=== PATIENT | female | born 1950 | race Caucasian/White ===

== ENCOUNTER 2017-10-22 16:09 | Emergency (ER) | payer OTHER | END 2017-10-22 16:54 | disposition short-term general hospital (02) | LOC: ER 16:09 | DX: R69 Illness, unspecified (principal) ==

== ENCOUNTER 2018-02-16 18:21 | Emergency (ER) | payer MEDICARE, OTHER ==
[2018-02-16] MEDS ORDERED: AZITHROMYCIN 500MG/NS 250 ML 250 ML IV ONE (18:30)
[2018-02-16] MEDS ORDERED: ASPIRIN 81 MG CHEW TAB PO ONE (18:30)
[2018-02-16] MEDS ORDERED: IPRATROPIUM BROMIDE 0.02% 2.5 ML NEB NEB STA (18:30)
[2018-02-16] MEDS ORDERED: ALBUTEROL SULF 0.083% NEB SOLN 3 ML NEB NEB STA (18:30)
[2018-02-16] MEDS ORDERED: CEFTRIAXONE SOD 1 GM VIAL IV ONE (19:00)
[2018-02-16 19:13] LABS: BASOPHILS % 0.5 % (0.0-1.0); EOSINOPHILS # (AUTO) 0.3 (0.0-0.4); EOSINOPHILS % 3.1 % (0.0-6.0); HEMATOCRIT 40.5 % (34.2-44.1); HEMOGLOBIN 14.1 g/dL (12.0-16.0); LYMPHOCYTES # (AUTO) 2.1 (1.0-3.2); LYMPHOCYTES % 25.6 % (18.0-39.1); MEAN CORPUSCULAR HEMOGLOBIN 30.5 pg (28-32); MEAN CORPUSCULAR HGB CONC 34.8 g/dL (31-35); MEAN CORPUSCULAR VOLUME 87.5 fL (81-99); MONOCYTES # (AUTO) 0.8 (0.2-0.8); NEUTROPHILS # (AUTO) 5.1 (2.1-6.9); NEUTROPHILS % 61.4 % (38.7-80.0); PLATELET COUNT 203 x10e3/uL (140-360); RED BLOOD COUNT 4.63 x10e6/uL (3.6-5.1); RED CELL DISTRIBUTION WIDTH 13.7 % (11.7-14.4)
[2018-02-16 19:25] LABS: PROTHROMBIN TIME 12.4 seconds (11.9-14.5)
[2018-02-16 19:26] LABS: PARTIAL THROMBOPLASTIN TIME 28.8 seconds (23.8-35.5)
[2018-02-16 19:35] LABS: ALANINE AMINOTRANSFERASE 20 IU/L (0-55); ALBUMIN 4.2 g/dL (3.5-5.0); ALBUMIN/GLOBULIN RATIO 1.1 (0.8-2.0); ALKALINE PHOSPHATASE 60 IU/L (40-150); ANION GAP 14.5 mmol/L (8-16); BLOOD UREA NITROGEN 17 mg/dL (7-26); BUN/CREATININE RATIO 19 (6-25); CALCIUM 10.1 mg/dL (8.4-10.2); CARBON DIOXIDE 26 mmol/L (22-29); CHLORIDE 105 mmol/L (98-107); CREATINE KINASE 26 IU/L (29-168); CREATININE, SERUM 0.88 mg/dL (0.57-1.11); EST GLOMERULAR FILTRATION RATE > 60 ML/MIN (60-); GLUCOSE 135 mg/dL (74-118); MAGNESIUM 1.8 MG/DL (1.3-2.1); POTASSIUM 3.5 mmol/L (3.5-5.1); SODIUM 142 mmol/L (136-145)
[2018-02-16 19:36] LABS: CLARITY,URINE CLEAR (CLEAR); COLOR,URINE YELLOW (YELLOW)
[2018-02-16 19:37] LABS: BACTERIA,URINE RARE /HPF; BILIRUBIN,URINE NEGATIVE (NEGATIVE); EPITHELIAL CELLS,URINE RARE /LPF; KETONES,URINE NEGATIVE (NEGATIVE); LEUKOCYTE ESTERASE ,URINE 1+ (NEGATIVE); NITRITE,URINE NEGATIVE (NEGATIVE); PROTEIN,URINE DIPSTICK NEGATIVE (NEGATIVE); RBC,URINE 0-5 /HPF (0-5); URINE UROBILINOGEN 0.2 mg/dL (0.2 - 1)
[2018-02-16 19:55] LABS: THYROID STIMULATING HORMONE 2.404 uIU/mL (0.350-4.940)
--- NOTE | 2018-02-16 21:04 | Diagnostic Imaging Report ---
CHEST 2 VIEWS, Technique: CHEST 2 VIEWS Comparison: None Clinical history: Shortness of breath, cough DISCUSSION: Normal cardiomediastinal silhouette for technique. Mild central bilateral bronchial cuffing. No consolidation partially imaged ACDF. IMPRESSION: Findings which can be seen with small airways disease or atypical infection/bronchitis. Signed by: Dr Nayla Jennings MD on 02/16/2018 9:00 PM
--- NOTE | 2018-02-16 21:11 | Diagnostic Imaging Report ---
EXAM: CT CHEST W DATE: 02/16/2018 6:30 PM INDICATION: Shortness of breath, cough COMPARISON: None TECHNIQUE: Multidetector CT scanning of the chest was performed. Coronal and sagittal multiplanar reformations were obtained. IV Contrast: 100 ml Isovue 370/300 FINDINGS: LUNGS AND PLEURA: There is bilateral peribronchial thickening and mild groundglass opacity primarily in the right upper lobe, likely postinfectious or inflammatory. No effusions or pneumothorax. HEART, MEDIASTINUM, VESSELS: Normal heart size without pericardial effusion. There is coronary artery and aortic atherosclerotic calcification. No adenopathy. Degraded by motion artifact in the lower lobes, from early on the left; otherwise no evidence of acute pulmonary embolism. Main pulmonary artery is normal in caliber, 2.4 cm. UPPER ABDOMEN: Unremarkable. MUSCULOSKELETAL: Scattered degenerative changes and partially imaged ACDF. IMPRESSION: 1. Somewhat degraded by motion artifact in the lower lobes. Otherwise no evidence of acute pulmonary embolism. 2. Findings which can be seen with small airways disease or bronchitis. Signed by: Dr Nayla Jennings MD on 02/16/2018 9:07 PM
[2018-02-16] MEDS ORDERED: IOPAMIDOL 370 MG/ML 200 ML INFUS..BTL INJ ONE (21:22)
[2018-02-16] MEDS ORDERED: SODIUM CHLORIDE 0.9% 50ML 50 ML ONE (21:22)
[2018-02-16] MEDS ORDERED: METHYLPREDNISOLONE SOD SUCC 125 MG/2ML VIAL IV ONE (21:30)
== END 2018-02-16 21:58 | disposition home or self-care (01) ==
LOC: ER 18:21
DX: R05 Cough (principal); J20.9 Acute bronchitis, unspecified
CPT/HCPCS: 36415; 71046; 71260; 80053; 81001; 82550; 82553; 83735; 83880; 84443; 84484; 85025; 85610; 85730; 87086; 93005; 94640; 96374; 99284; J0456; J0696; J2930; Q9967

== ENCOUNTER 2018-05-02 12:36 | Observation (INO) | payer MEDICARE ==
[~2018-05-02] VITALS: Ht 167.6 cm; Wt 92.6 kg
[2018-05-02] MEDS ORDERED: LEVOTHYROXINE50 MCG PO (13:41)
[2018-05-02] MEDS ORDERED: LOSARTAN POTASS25 MG PO (13:42)
[2018-05-02] MEDS ORDERED: MELOXICAM7.5 MG PO (13:43)
[2018-05-02] MEDS ORDERED: CLONAZEPAM0.5 MG PO (13:44)
[2018-05-02] MEDS ORDERED: ASPIR 8181 MG PO (13:44)
[2018-05-02] MEDS ORDERED: GABAPENTIN300 MG PO (13:44)
[2018-05-02 13:47] LABS: BASOPHILS % 0.4 % (0.0-1.0); EOSINOPHILS # (AUTO) 0.1 (0.0-0.4); EOSINOPHILS % 1.2 % (0.0-6.0); HEMATOCRIT 38.1 % (34.2-44.1); HEMOGLOBIN 13.2 g/dL (12.0-16.0); LYMPHOCYTES # (AUTO) 1.6 (1.0-3.2); LYMPHOCYTES % 18.2 % (18.0-39.1); MEAN CORPUSCULAR HEMOGLOBIN 30.2 pg (28-32); MEAN CORPUSCULAR HGB CONC 34.6 g/dL (31-35); MEAN CORPUSCULAR VOLUME 87.2 fL (81-99); MONOCYTES # (AUTO) 0.7 (0.2-0.8); MONOCYTES % 7.6 % (4.4-11.3); NEUTROPHILS # (AUTO) 6.4 (2.1-6.9); NEUTROPHILS % 72.4 % (38.7-80.0); PLATELET COUNT 208 x10e3/uL (140-360); RED BLOOD COUNT 4.37 x10e6/uL (3.6-5.1); RED CELL DISTRIBUTION WIDTH 13.4 % (11.7-14.4)
[2018-05-02 14:09] LABS: ANION GAP 16.1 mmol/L (8-16); BLOOD UREA NITROGEN 20 mg/dL (7-26); BUN/CREATININE RATIO 27 (6-25); CALCIUM 9.8 mg/dL (8.4-10.2); CARBON DIOXIDE 24 mmol/L (22-29); CHLORIDE 104 mmol/L (98-107); CREATININE, SERUM 0.74 mg/dL (0.57-1.11); EST GLOMERULAR FILTRATION RATE > 60 ML/MIN (60-); GLUCOSE 116 mg/dL (74-118); POTASSIUM 4.1 mmol/L (3.5-5.1); SODIUM 140 mmol/L (136-145)
[2018-05-02] MEDS ORDERED: PROPOFOL IV EMULSION 10 MG/ML 20 ML VIAL ONE (16:48)
[2018-05-02] MEDS ORDERED: DEXAMETHASONE SOD PHOS INJ 4 MG/ML VIAL ONE (16:48)
[2018-05-02] MEDS ORDERED: KETOROLAC TROMETHAMINE 30 MG/ML VIAL ONE (16:48)
[2018-05-02] MEDS ORDERED: LIDOCAINE HCL 2% LOCAL INJ 5 ML SDV VIAL INJ ONE (16:48)
[2018-05-02] MEDS ORDERED: ONDANSETRON HCL INJ 2 MG/ML VIAL ONE (16:48)
[2018-05-02] MEDS ORDERED: ROCURONIUM BROMIDE 10 MG/ML 5ML VIAL ONE (16:48)
[2018-05-02] MEDS ORDERED: GLYCOPYRROLATE INJ 1MG/ 5 ML SYR ONE (16:48)
[2018-05-02] MEDS ORDERED: NEOSTIGMINE 5 MG/5ML SYR ONE (16:48)
[2018-05-02] MEDS ORDERED: SEVOFLURANE INHAL SOLN 250 ML PEN BTL ONE (16:48)
[2018-05-02] MEDS ORDERED: BUPIVACAINE 0.25%/EPI 30ML SDV INJ ONE (17:01)
[2018-05-02] MEDS ORDERED: FENTANYL CITRATE/PF 100MCG/2 ML INJ ONE ×2 (18:03→19:41)
[2018-05-02] MEDS ORDERED: MIDAZOLAM HCL 2 MG/2 ML VIAL ONE (18:03)
[2018-05-02] MEDS ORDERED: PROMETHAZINE HCL (IM) 25 MG/ML VIAL IV PRN (19:00)
[2018-05-02] MEDS ORDERED: ACETAMINOPHEN 1000 MG/100 ML IV PRN (19:00)
[2018-05-02] MEDS ORDERED: HYDROMORPHONE 1MG/1ML INJ IV PRN (19:00)
[2018-05-02] MEDS ORDERED: PROMETHAZINE 12.5MG/ NACL 0.9% 50 ML IV PRN (19:30)
[2018-05-02 20:05] VITALS: BP 142/65
[2018-05-02] MEDS: DEXTROSE 5%/LACTATED RINGERS 1,000 ML IV SCH (20:10)
[2018-05-02 20:12] VITALS: BP 129/59
[2018-05-02 20:39] VITALS: BP 129/59
[2018-05-02] MEDS ORDERED: PANTOPRAZOLE 40 MG 10ML VIAL IV SCH (21:00)
[2018-05-02] MEDS ORDERED: MAGNESIUM/ALUMINUM/SIMETHICONE 30 ML UDC PO SCH (21:00)
[2018-05-02 21:04] VITALS: BP 129/59
--- NOTE | 2018-05-02 21:07 | Operative Report ---
DATE OF PROCEDURE: May 02, 2018 PREOPERATIVE DIAGNOSES 1. Cholecystitis and cholelithiasis. 2. Gastroesophageal reflux disease, rule out peptic ulcer. POSTOPERATIVE DIAGNOSES 1. Cholecystitis and cholelithiasis. 2. Large duodenal ulcer. OPERATION PERFORMED: Laparoscopic cholecystectomy and esophagogastroduodenoscopy. ANESTHESIA: General. COMPLICATIONS: None. ESTIMATED BLOOD LOSS: Minimal. DESCRIPTION OF PROCEDURE: With the patient lying in bed in the supine position under good general endotracheal anesthesia, the abdomen was prepped with Betadine solution and draped in the usual manner. A Veress needle was introduced into the umbilicus and pneumoperitoneum was established without any difficulty. An11 mm trocar was placed into the umbilicus and a 10 mm video laparoscope was placed into the intraabdominal cavity. Under direct vision, three 5 mm trocars were placed in the right subcostal region. Video laparoscopy at this point revealed that the right upper quadrant was socked in with adhesions. The gallbladder was totally covered up with adhesions. The duodenum was stuck to the gallbladder as well as transverse colon seemed to be stuck to the duodenum. This was a much more severe inflammatory reaction than what we typically see with a normal gallbladder disease. The rest the abdominal exploration was otherwise within normal limits. All of the adhesions to the gallbladder and the duodenum and colon were then from the gallbladder. All of the adhesions to the gallbladder were taken down and the peritoneum overlying neck of the gallbladder was then opened and the cystic duct was identified. The cystic duct was followed to its junction with the common duct. The cystic duct was then circumferentially dissected away from the common duct, doubly clipped and divided. The cystic artery was similarly doubly clipped and divided. The gallbladder was then slowly and carefully taken off the liver bed using the cautery scissors. Perfect hemostasis was ascertained. The gallbladder was grasped through the umbilical port and removed without any difficulty. Video laparoscopy was then again carried out. Liver bed was found to be perfectly dry. All of the excess fluid was aspirated. The pneumoperitoneum was evacuated and all the trocars were removed under direct vision. The midline fascia at the umbilicus was then closed with a inzxli-pc-ptosm of 0 Vicryl. All layers were infiltrated on the way out with solution of 1/4 percent Marcaine. Subcutaneous tissue was approximated with 3-0 Vicryl and the skin was closed with subcuticular 5-0 Vicryl. Benzoin and Steri-Strips were applied. Band-Aids were placed. After this was done, the flexible Olympus gastroscope was then introduced into the back of the throat and slowly and carefully advanced. The esophagus appeared to be within normal limits. There was some minimal gastroesophageal reflux disease identified at the cardia. The cardia was then entered and the stomach was insufflated. The stomach appeared to be within normal limits with very minimal gastritis; however, right at the duodenum ball was a very large ulcer present with a large deep crater. There was no sign of any active bleeding. The ulceration was anterior and perhaps it probably explained all of the inflammatory reaction to the duodenum and the gallbladder with the colon and everything being stuck to the anterior duodenal wall. We decided not to take any biopsies as this clearly in the duodenum. The scope was then slowly and carefully withdrawn with the previously described findings. Patient tolerated both procedures well and returned to the recovery room in stable condition. Job#: [id number]
[2018-05-02 23:15] VITALS: BP 139/65
[2018-05-03 03:45] VITALS: BP 155/70
[2018-05-03 05:23] LABS: BASOPHILS % 0.2 % (0.0-1.0); HEMOGLOBIN 11.4 g/dL (12.0-16.0); LYMPHOCYTES # (AUTO) 1.1 (1.0-3.2); LYMPHOCYTES % 10.5 % (18.0-39.1); MEAN CORPUSCULAR HEMOGLOBIN 30.6 pg (28-32); MEAN CORPUSCULAR HGB CONC 34.5 g/dL (31-35); MEAN CORPUSCULAR VOLUME 88.5 fL (81-99); MONOCYTES # (AUTO) 0.6 (0.2-0.8); MONOCYTES % 6.4 % (4.4-11.3); NEUTROPHILS # (AUTO) 8.2 (2.1-6.9); NEUTROPHILS % 82.5 % (38.7-80.0); PLATELET COUNT 222 x10e3/uL (140-360); RED BLOOD COUNT 3.73 x10e6/uL (3.6-5.1); RED CELL DISTRIBUTION WIDTH 13.2 % (11.7-14.4)
[2018-05-03 05:48] LABS: ANION GAP 13.9 mmol/L (8-16); BLOOD UREA NITROGEN 19 mg/dL (7-26); BUN/CREATININE RATIO 23 (6-25); CALCIUM 9.2 mg/dL (8.4-10.2); CARBON DIOXIDE 25 mmol/L (22-29); CHLORIDE 104 mmol/L (98-107); CREATININE, SERUM 0.83 mg/dL (0.57-1.11); EST GLOMERULAR FILTRATION RATE > 60 ML/MIN (60-); GLUCOSE 148 mg/dL (74-118); POTASSIUM 3.9 mmol/L (3.5-5.1); SODIUM 139 mmol/L (136-145)
[2018-05-03] MEDS ORDERED: LEVOTHYROXINE SODIUM 50 MCG TAB PO SCH (06:00)
[2018-05-03] MEDS: DEXTROSE 5%/LACTATED RINGERS 1,000 ML IV SCH (06:35)
[2018-05-03 08:15] VITALS: BP 126/60
[2018-05-03] MEDS ORDERED: CLONAZEPAM 0.5 MG TAB PO SCH (09:00)
[2018-05-03] MEDS ORDERED: MELOXICAM 7.5 MG TAB PO SCH (09:00)
[2018-05-03] MEDS ORDERED: LOSARTAN POTASSIUM 25 MG TAB PO SCH (09:00)
[2018-05-03] MEDS ORDERED: PANTOPRAZOLE SO40 MG PO (09:07)
[2018-05-03] MEDS ORDERED: LEVAQUIN500 MG PO (09:08)
== END 2018-05-03 09:43 | disposition home or self-care (01) ==
LOC: OR 12:36 → IMCU 19:36
PROVIDERS: ADMIT Surgery; ATTEND Surgery
DX: K80.10 Calculus of gallbladder with chronic cholecystitis without obstruction (principal); K21.9 Gastro-esophageal reflux disease without esophagitis; Z01.810 Encounter for preprocedural cardiovascular examination; Z01.812 Encounter for preprocedural laboratory examination; Z01.811 Encounter for preprocedural respiratory examination; E03.9 Hypothyroidism, unspecified; Z88.5 Allergy status to narcotic agent; Z88.0 Allergy status to penicillin; I10 Essential (primary) hypertension; F17.210 Nicotine dependence, cigarettes, uncomplicated; K26.3 Acute duodenal ulcer without hemorrhage or perforation
CPT/HCPCS: 36415 ×2; 43235; 47562; 80048 ×2; 85025 ×2; 88304; 93005; C1766; G0378 ×2; J1100; J1170; J1885; J2001; J2250; J2405; J3490; J7120

== ENCOUNTER → 2019-01-23 | Day surgery (SDC) | payer MEDICARE ==
[2019-01-22 13:18] LABS: BASOPHILS % 0.6 % (0.0-1.0); EOSINOPHILS # (AUTO) 0.1 (0.0-0.4); EOSINOPHILS % 1.7 % (0.0-6.0); HEMATOCRIT 36.3 % (34.2-44.1); HEMOGLOBIN 13.2 g/dL (12.0-16.0); LYMPHOCYTES % 31.7 % (18.0-39.1); MEAN CORPUSCULAR HEMOGLOBIN 31.7 pg (28-32); MEAN CORPUSCULAR HGB CONC 36.4 g/dL (31-35); MEAN CORPUSCULAR VOLUME 87.3 fL (81-99); MONOCYTES # (AUTO) 0.5 (0.2-0.8); MONOCYTES % 8.1 % (4.4-11.3); NEUTROPHILS # (AUTO) 3.7 (2.1-6.9); NEUTROPHILS % 57.4 % (38.7-80.0); PLATELET COUNT 159 x10e3/uL (140-360); RED BLOOD COUNT 4.16 x10e6/uL (3.6-5.1); RED CELL DISTRIBUTION WIDTH 12.8 % (11.7-14.4)
[2019-01-22 13:33] LABS: ANION GAP 12.5 mmol/L (8-16); BLOOD UREA NITROGEN 18 mg/dL (7-26); BUN/CREATININE RATIO 21 (6-25); CALCIUM 9.2 mg/dL (8.4-10.2); CARBON DIOXIDE 25 mmol/L (22-29); CHLORIDE 100 mmol/L (98-107); CREATININE, SERUM 0.86 mg/dL (0.57-1.11); EST GLOMERULAR FILTRATION RATE > 60 ML/MIN (60-); GLUCOSE 98 mg/dL (74-118); POTASSIUM 3.5 mmol/L (3.5-5.1); SODIUM 134 mmol/L (136-145)
--- NOTE | 2019-01-22 13:41 | Diagnostic Imaging Report ---
EXAMINATION: CHEST 2 VIEWS INDICATION: Pre-admit. COMPARISON: None FINDINGS: TUBES and LINES: None. LUNGS: Lungs are mildly hyperinflated. Mild patchy left basilar opacity, likely atelectasis. There is no evidence of pneumonia or pulmonary edema. PLEURA: No pleural effusion or pneumothorax. HEART AND MEDIASTINUM: The cardiomediastinal silhouette is unremarkable. BONES AND SOFT TISSUES: No acute osseous abnormality. UPPER ABDOMEN: No free air under the diaphragm. IMPRESSION: No acute radiographic abnormality. Signed by: Dr. Rhea Garcia MD on 01/22/2019 1:38 PM
[~2019-01-23] MED LIST: ASPIR 8181 MG PO; CHOLESTEROL PO; CIPRO500 MG PO; CLONAZEPAM0.5 MG PO; CLONAZEPAM1 MG PO; FENTANYL CITRATE/PF 100MCG/2 ML INJ ONE; GABAPENTIN300 MG PO; GEMFIBROZIL600 MG PO; LEVAQUIN500 MG PO; LEVOTHYROXINE50 MCG PO; LIDOCAINE HCL 2% LOCAL INJ 5 ML SDV VIAL INJ ONE; LOSARTAN POTASS25 MG PO; MELOXICAM15 MG PO; MELOXICAM7.5 MG PO; MIDAZOLAM HCL 2 MG/2 ML VIAL ONE; PANTOPRAZOLE SO40 MG PO; PAXIL10 MG PO; PROPOFOL IV EMULSION 10 MG/ML 20 ML VIAL ONE; TOVIAZ4 MG PO; TRAZODONE HCL50 MG PO
[2019-01-23 09:20] VITALS: BP 148/73
== END | disposition home or self-care (01) ==
LOC: OR 06:25
PROVIDERS: ATTEND Surgery
DX: K21.0 Gastro-esophageal reflux disease with esophagitis (principal); K29.70 Gastritis, unspecified, without bleeding; K22.10 Ulcer of esophagus without bleeding; E03.9 Hypothyroidism, unspecified; I10 Essential (primary) hypertension; F41.9 Anxiety disorder, unspecified; Z88.6 Allergy status to analgesic agent; Z88.0 Allergy status to penicillin; Z01.810 Encounter for preprocedural cardiovascular examination; Z01.812 Encounter for preprocedural laboratory examination; Z01.818 Encounter for other preprocedural examination; Z87.891 Personal history of nicotine dependence
CPT/HCPCS: 36415; 43235; 71046; 80048; 85025; 93005; J2001; J2250; J2704

== ENCOUNTER 2019-01-29 18:26 | Observation (INO) | payer MEDICARE ==
[~2019-01-29] VITALS: Ht 170.2 cm; Wt 67.1 kg
[~2019-01-29 18:26] MED LIST changes: -CIPRO500 MG PO; -CLONAZEPAM1 MG PO; -FENTANYL CITRATE/PF 100MCG/2 ML INJ ONE; -GEMFIBROZIL600 MG PO; -LIDOCAINE HCL 2% LOCAL INJ 5 ML SDV VIAL INJ ONE; -MELOXICAM15 MG PO; -MIDAZOLAM HCL 2 MG/2 ML VIAL ONE; -PROPOFOL IV EMULSION 10 MG/ML 20 ML VIAL ONE
[2019-01-29] MEDS ORDERED: ONDANSETRON HCL INJ 2MG/ML 2ML 2 MG/ML VIAL IV STA (18:38)
[2019-01-29] MEDS ORDERED: SODIUM CHLORIDE 0.9% 1000ML 1,000 ML IV STA (18:38)
[2019-01-29] MEDS ORDERED: MECLIZINE HCL 12.5 MG TAB PO ONE (18:45)
[2019-01-29] MEDS ORDERED: ONDANSETRON HCL INJ 2MG/ML 2ML 2 MG/ML VIAL IV ONE (19:00)
--- NOTE | 2019-01-29 19:05 | NUR ---
Report to Mariano. Patient in CT at time.
[2019-01-29 19:10] LABS: INR 0.88; PARTIAL THROMBOPLASTIN TIME 22.3 seconds (23.8-35.5); PROTHROMBIN TIME 12.4 seconds (11.9-14.5)
[2019-01-29 19:20] LABS: ALBUMIN 4.4 g/dL (3.5-5.0); ALBUMIN/GLOBULIN RATIO 1.6 (0.8-2.0); ANION GAP 16.4 mmol/L (8-16); CREATININE, SERUM 0.93 mg/dL (0.57-1.11); POTASSIUM 3.4 mmol/L (3.5-5.1)
--- NOTE | 2019-01-29 19:20 | Diagnostic Imaging Report ---
Examination: Single AP view of the chest. COMPARISON: None. INDICATION: Dizziness and weakness DISCUSSION: Lines/tubes: None. Lungs: The lungs are well inflated and clear. No pneumonia or pulmonary edema. Pleura: No pleural effusion or pneumothorax. Heart and mediastinum: The heart and the mediastinum are unremarkable. Bones and soft tissues: No acute bony abnormalities. IMPRESSION: 1. No acute cardiopulmonary abnormalities. Signed by: Dr. Cornelius Hillman M.D. on 01/29/2019 7:17 PM
[2019-01-29 19:23] LABS: BASOPHILS % 0.3 % (0.0-1.0); EOSINOPHILS % 0.2 % (0.0-6.0); HEMATOCRIT 37.4 % (34.2-44.1); HEMOGLOBIN 13.7 g/dL (12.0-16.0); LYMPHOCYTES # (AUTO) 1.6 (1.0-3.2); LYMPHOCYTES % 16.5 % (18.0-39.1); MEAN CORPUSCULAR HEMOGLOBIN 31.7 pg (28-32); MEAN CORPUSCULAR HGB CONC 36.6 g/dL (31-35); MEAN CORPUSCULAR VOLUME 86.6 fL (81-99); MONOCYTES # (AUTO) 0.5 (0.2-0.8); MONOCYTES % 5.4 % (4.4-11.3); NEUTROPHILS # (AUTO) 7.3 (2.1-6.9); NEUTROPHILS % 77.2 % (38.7-80.0); PLATELET COUNT 168 x10e3/uL (140-360); RED BLOOD COUNT 4.32 x10e6/uL (3.6-5.1); RED CELL DISTRIBUTION WIDTH 12.8 % (11.7-14.4)
[2019-01-29 19:39] LABS: CREATINE KINASE MB 0.8 ng/mL (0-5.0); THYROID STIMULATING HORMONE 0.791 uIU/mL (0.350-4.940)
--- NOTE | 2019-01-29 19:43 | NUR ---
BOLUS STILL INFUSING, WILL ATTEMPT URINE AFTER BOLUS, PT STATES SHE IS FEELING BETTER, STILL DIZZY, NAUSEA IMPROVED.
--- NOTE | 2019-01-29 20:24 | NUR ---
PT STATES SHE IS STILL HAVING DIZZINESS AND NAUSEATED. DOES NOT THINK SHE CAN SIT ON TOILET TO COLLECT SAMPLE, ERP AWARE, RECEIVED ORDER FOR STRAIGHT CATH. IN AND OUT CATH USING STERILE TECHNIQUE PER SAW LEE. SPECIMEN COLLECTED AND SENT TO LAB
--- NOTE | 2019-01-29 20:31 | Diagnostic Imaging Report ---
Exam: Head CT without contrast History: Passed out yard work Comparison studies: 921 Technique: Axial images were obtained from the skull base to the vertex. Coronal and sagittal images reconstructed from the axial data. Dose modulation, iterative reconstruction, and/or weight based adjustment of the mA/kV was utilized to reduce the radiation dose to as low as reasonably achievable. Radiation dose: Total DLP: 921 mGy*cm. Estimated effective dose: DLP x 0.015 Intravenous contrast: None Findings: Scalp: No abnormalities. Bones: No fractures, blastic or lytic lesions. Brain sulci: Mildly prominent. Ventricles: Mild compensatory dilatation. No hydrocephalus. Extra-axial spaces: No masses, no fluid collection. Parenchyma: No abnormal densities. No masses, acute hemorrhage, acute or chronic vascular insults. Sellar/suprasellar region: No abnormalities. Craniocervical junction: Patent foramen magnum. No Chiari one malformation. Incidental findings: Atherosclerotic calcifications in the carotid siphons. IMPRESSION: 1. No acute abnormalities. 2. Mild age-related cerebral volume loss. Signed by: Dr. Gerardo Hancock M.D. on 01/29/2019 8:28 PM
[2019-01-29] MEDS ORDERED: CLONAZEPAM1 MG PO (20:35)
[2019-01-29] MEDS ORDERED: MELOXICAM15 MG PO (20:35)
[2019-01-29 20:37] LABS: BILIRUBIN,URINE NEGATIVE (NEGATIVE); CLARITY,URINE SL CLOUDY (CLEAR); COLOR,URINE YELLOW (YELLOW); KETONES,URINE NEGATIVE (NEGATIVE); LEUKOCYTE ESTERASE ,URINE NEGATIVE (NEGATIVE); NITRITE,URINE NEGATIVE (NEGATIVE); PROTEIN,URINE DIPSTICK NEGATIVE (NEGATIVE); URINE UROBILINOGEN 0.2 mg/dL (0.2 - 1)
[2019-01-29] MEDS ORDERED: GEMFIBROZIL600 MG PO (20:50)
[2019-01-29 21:15] LABS: BACTERIA,URINE MANY /HPF; EPITHELIAL CELLS,URINE FEW /LPF
--- NOTE | 2019-01-29 21:21 | NUR ---
cont to complain of dizziness. awake alert skin w/d resp nonlab. nad noted
[2019-01-29] MEDS ORDERED: ONDANSETRON HCL INJ 2MG/ML 2ML 2 MG/ML VIAL IV PRN (21:30)
[2019-01-29] MEDS ORDERED: TRAZODONE HCL 50 MG TAB PO PRN (21:30)
[2019-01-29] MEDS ORDERED: MECLIZINE HCL 12.5 MG TAB PO PRN (21:30)
[2019-01-29] MEDS: NITROFURANTOIN MACROCRYSTALS 100 MG CAP PO SCH (21:37)
[2019-01-29] MEDS ORDERED: NITROFURANTOIN MACROCRYSTALS 100 MG CAP ONE (21:37)
[2019-01-29 21:45] VITALS: BP 127/62
[2019-01-29 22:15] VITALS: BP 127/62
[2019-01-29 22:18] VITALS: BP 127/62
[2019-01-29] MEDS: SODIUM CHLORIDE 0.9% 1000ML 1,000 ML IV SCH (22:29)
[2019-01-30] VITALS: BP 118/56
[2019-01-30 03:06] LABS: BASOPHILS % 0.5 % (0.0-1.0); EOSINOPHILS # (AUTO) 0.1 (0.0-0.4); EOSINOPHILS % 0.7 % (0.0-6.0); HEMATOCRIT 34.2 % (34.2-44.1); HEMOGLOBIN 12.3 g/dL (12.0-16.0); LYMPHOCYTES # (AUTO) 2.9 (1.0-3.2); LYMPHOCYTES % 37.8 % (18.0-39.1); MEAN CORPUSCULAR HEMOGLOBIN 31.6 pg (28-32); MEAN CORPUSCULAR VOLUME 87.9 fL (81-99); MONOCYTES # (AUTO) 0.6 (0.2-0.8); MONOCYTES % 7.6 % (4.4-11.3); NEUTROPHILS # (AUTO) 4.1 (2.1-6.9); NEUTROPHILS % 53.1 % (38.7-80.0); PLATELET COUNT 161 x10e3/uL (140-360); RED BLOOD COUNT 3.89 x10e6/uL (3.6-5.1); RED CELL DISTRIBUTION WIDTH 13.1 % (11.7-14.4)
[2019-01-30 04:00] VITALS: BP 124/60
[2019-01-30 04:58] LABS: ALBUMIN 3.5 g/dL (3.5-5.0); ALBUMIN/GLOBULIN RATIO 1.5 (0.8-2.0); ANION GAP 10.7 mmol/L (8-16); CALCIUM 8.8 mg/dL (8.4-10.2); CREATININE, SERUM 0.99 mg/dL (0.57-1.11); POTASSIUM 3.7 mmol/L (3.5-5.1)
[2019-01-30] MEDS: SODIUM CHLORIDE 0.9% 1000ML 1,000 ML IV SCH ×2 (05:07→11:42)
[2019-01-30] MEDS ORDERED: LEVOTHYROXINE SODIUM 50 MCG TAB PO SCH (06:00)
[2019-01-30 06:40] LABS: CREATINE KINASE 28 IU/L (29-168)
--- NOTE | 2019-01-30 07:15 | NUR ---
Pt received resting in bed. Alert and oriented x4. Receiving IV fluid as ordered. Oriented to staff and surroundings. Encouraged to press call lam if help needed. Emotional support given. Will monitor
[2019-01-30 08:50] VITALS: BP 119/58
--- NOTE | 2019-01-30 08:50 | NUR ---
All meds given as ordered. Call lam within reach. Will monitor
[2019-01-30] MEDS ORDERED: PAROXETINE HCL 20 MG TAB PO SCH (09:00)
[2019-01-30] MEDS ORDERED: LOSARTAN POTASSIUM 25 MG TAB PO SCH (09:00)
[2019-01-30] MEDS ORDERED: PAROXETINE HCL 10 MG PO SCH (09:00)
[2019-01-30] MEDS ORDERED: CLONAZEPAM 1 MG TAB PO SCH (09:00)
[2019-01-30] MEDS: PANTOPRAZOLE SOD 40 MG TABEC PO SCH ×2 (09:49→16:04)
[2019-01-30] MEDS: NITROFURANTOIN MACROCRYSTALS 100 MG CAP PO SCH ×2 (09:49→16:04)
[2019-01-30 10:00] VITALS: BP 119/58
[2019-01-30] MEDS ORDERED: ONDANSETRON HCL 4 MG ORAL DISINTEGRATING TAB PO PRN (11:00)
[2019-01-30 11:49] VITALS: BP 117/55
--- NOTE | 2019-01-30 12:37 | NUR ---
Nutrition Screen Note RD Recommendation for Physician: - Continue current diet as ordered Plan of Care: RD following, monitoring for tolerance and adequacy Nutrition reason for involvement: Nutrition Risk Trigger MST Primary Diagnose(s): UTI, vertigo PMH: no H&P in chart Ht: 67in Wt: 148lb BMI: 23.2kg/m2 IBW: 142lb RD Assessment: (01/30) Chart reviewed. Labs and meds reviewed. 68yo F, who was admitted for UTI and vertigo. Visited pt in the room. Pt reported good appetite. No GI complains reported. Pt denied any chewing or swallowing difficulty. Pt reported some intentional weight loss through diet and lifestyle changes. Will continue to monitor and follow. Current Diet: cardiac diet Malnutrition Evaluation (01/30/2019) The patient does not meet criteria for a specified degree of malnutrition at this time. Will re-evaluate at follow-up as appropriate. Diet Education Needs Assessment: Diet education not indicated. Nutrition Care Level: low Signed: Madeline Escobar, MS, RD, LD
[2019-01-30 13:41] LABS: CREATINE KINASE 27 IU/L (29-168)
[2019-01-30 16:11] VITALS: BP 133/63
[2019-01-30] MEDS ORDERED: CIPRO500 MG PO (17:19)
--- NOTE | 2019-01-30 19:10 | NUR ---
Pt given discharge instructions regarding meds, diet, activities, and follow up with PCP. Pt verbalized understanding of teaching. Pt left unit in wheelchair to grand-daughter's car
== END 2019-01-30 19:00 | disposition home or self-care (01) ==
LOC: ER 18:26 → ERHOLD 21:40 → IMCU 21:49
PROVIDERS: ADMIT Internal Medicine; ATTEND Internal Medicine
DX: E86.0 Dehydration (principal); R55 Syncope and collapse; Z88.5 Allergy status to narcotic agent; Z88.0 Allergy status to penicillin; I10 Essential (primary) hypertension; F41.9 Anxiety disorder, unspecified; F32.9 Major depressive disorder, single episode, unspecified; N39.0 Urinary tract infection, site not specified; E03.9 Hypothyroidism, unspecified; Z90.49 Acquired absence of other specified parts of digestive tract
CPT/HCPCS: 36415 ×2; 70450; 71045; 80053 ×2; 81001; 82550 ×2; 82553 ×2; 83880; 84443; 84484 ×2; 85025 ×2; 85610; 85730; 87086; 87186; 93005; 96361; 99284; G0378 ×2; J2405; J7030 ×2; J8597 ×2; S0164

== ENCOUNTER 2019-07-29 20:49 | Emergency (ER) | payer MEDICARE, OTHER ==
[~2019-07-29] VITALS: Ht 170.2 cm; Wt 67.1 kg
[~2019-07-29 20:49] MED LIST changes: +CIPRO500 MG PO; +CLONAZEPAM1 MG PO; +GEMFIBROZIL600 MG PO; +MELOXICAM15 MG PO
--- OUTSIDE RECORDS SUMMARY | 2019-07-29 20:51 | XMS REPORT | Summary of Care ---
Author Author [facility] - Health Organization [facility] - Health Address Unknown Phone Unavailable Care Team Providers Care Firer Marine Name Role Phone [facility] PCP Reason for Visit * Radiology Services (Routine) Referred By Contact Referred To Contact Status Reason Specialty Diagnoses / Procedures [facility] [address] [place] [address] Closed Diagnostic Diagnoses Radiology Encounter for screening mammogram for malignant neoplasm of breast Preventative health care P rocedures BI SCREENING TOMOSYNTHESIS BILATERAL BI SCREENING MAMMOGRAM BILATERAL Encounter Details Care Team Description Date Type Department Radiology [address] [place] [id number] Arrived 03/23/2019 [facility] Encounter [facility] [address] [place] [address] Allergies Comments Active Allergy Reactions Severity Noted Date Codeine Itching 10/21/2018 Penicillins Itching Low 10/21/2018 documented as of this encounter (statuses as of 03/24/2019) Medications End Date Status Medication Sig Dispensed Refills Start Date Active losartan 25 mg tablet Take 25 mg by 0 mouth daily. Active zolpidem 10 mg tablet Take 10 mg by 0 mouth at bedtime as needed for Insomnia. Active pantoprazole sodium Take 30 mg by 0 (PROTONIX ORAL) mouth 2 (two) times daily. Active clonazePAM 0.5 mg tablet TK 1 T PO 1 BID 9 Active MELOXICAM Take by 0 ORALIndications: for mouth. right hip pain documented as of this encounter (statuses as of 03/24/2019) Active Problems Not on filedocumented as of this encounter (statuses as of 03/24/2019) Social History Date Tobacco Use Types Packs/Day Years Used Quit: 10/21/2003 Former Smoker Smokeless Tobacco: Never Used Comments: chews nicotine from time to time. Drinks/Week oz/Week Comments Alcohol Use none since april due to stomach ulcers Yes Sex Assigned at Date Recorded Not on file Industry Job Start Date Occupation Not on file Not on file Not on file Travel End Travel History Travel Start No recent travel history available. documented as of this encounter Last Filed Vital Signs Not on filedocumented in this encounter Plan of Treatment Health Maintenance Due Date Last Done Comments HEPATITIS C (HCV) SCREEN 1950 DTaP,Tdap,and Td Vaccines 12/22/1970 (1 - Tdap) MAMMOGRAM 1991 COLONOSCOPY 12/22/2001 Zoster Recombinant 12/22/2001 Vaccine (SHINGRIX) (1 of 2) Medicare Wellness Visit 12/22/2016 Osteoporosis Screening 12/22/2016 PNEUMOCOCCAL VACCINES 65+ 12/22/2016 (1 of 2 - PCV13) INFLUENZA VACCINE 04/26/2019 documented as of this encounter Procedures Comments Procedure Name Priority Date/Time Associated Diagnosis BI SCREENING Routine 03/23/2019 Encounter for screening TOMOSYNTHESIS BILATERAL 2:47 PM CDT mammogram for malignant neoplasm of breast Preventative health care documented in this encounter Results * BI SCREENING TOMOSYNTHESIS BILATERAL (03/23/2019 2:47 PM CDT) Specimen Narrative Performed At PACS Examination: BI SCREENING TOMOSYNTHESIS BILATERAL History: Patient is 68 year old and is seen for:Preventative health care. Family medical history includes breast cancer in paternal aunt and breast cancer in 2 sisters. No relevant hormone history has been documented for this patient. Surgical history includes hysterectomy. No relevant medical history has been documented for this patient. Computer-aided detection (CAD) utilized. Comparisons : None available Findings: The breasts are heterogeneously dense, which may obscure small masses. There is no evidence of suspicious masses, calcifications, or other abnormal findings. Impression: No mammographic evidence of malignancy. Recommendation: Annual mammographic follow-up BI-RADS Category: Both 1 - Negative Performing Organization Address City/State/Zipcode Phone Number PACS documented in this encounter Visit Diagnoses Diagnosis Encounter for screening mammogram for malignant neoplasm of breast Other screening mammogram Preventative health care Routine general medical examination at a health care facility documented in this encounter Insurance Type Payer Benefit Subscriber ID Effective Phone Address Plan / Dates Group Medicare Adv PPO AETNA - MANAGED MEDICARE AETNA [id number] [id number] [address] MEDICARE resent [id number] [place] [phone] documented as of this encounter
[2019-07-29] MEDS ORDERED: ONDANSETRON HCL INJ 2MG/ML 2ML 2 MG/ML VIAL IV STA (22:08)
[2019-07-29] MEDS ORDERED: SODIUM CHLORIDE 0.9% 1000ML 1,000 ML IV ONE (22:15)
[2019-07-29] MEDS ORDERED: ACETAMINOPHEN 325 MG TAB PO ONE (22:15)
[2019-07-29 22:20] LABS: BASOPHILS % 0.1 % (0.0-1.0); EOSINOPHILS # (AUTO) 0.2 (0.0-0.4); HEMATOCRIT 39.8 % (34.2-44.1); LYMPHOCYTES # (AUTO) 0.6 (1.0-3.2); LYMPHOCYTES % 8.3 % (18.0-39.1); MEAN CORPUSCULAR HEMOGLOBIN 32.3 pg (28-32); MEAN CORPUSCULAR HGB CONC 35.2 g/dL (31-35); MEAN CORPUSCULAR VOLUME 91.9 fL (81-99); MONOCYTES # (AUTO) 0.6 (0.2-0.8); MONOCYTES % 7.7 % (4.4-11.3); NEUTROPHILS # (AUTO) 6.2 (2.1-6.9); NEUTROPHILS % 81.6 % (38.7-80.0); PLATELET COUNT 169 x10e3/uL (140-360); RED BLOOD COUNT 4.33 x10e6/uL (3.6-5.1); RED CELL DISTRIBUTION WIDTH 13.3 % (11.7-14.4)
[2019-07-29 22:38] LABS: ALANINE AMINOTRANSFERASE 14 IU/L (0-55); ALBUMIN/GLOBULIN RATIO 1.4 (0.8-2.0); ALKALINE PHOSPHATASE 52 IU/L (40-150); ANION GAP 14.2 mmol/L (8-16); BLOOD UREA NITROGEN 20 mg/dL (7-26); BUN/CREATININE RATIO 25 (6-25); CALCIUM 8.8 mg/dL (8.4-10.2); CARBON DIOXIDE 24 mmol/L (22-29); CHLORIDE 103 mmol/L (98-107); CREATININE, SERUM 0.81 mg/dL (0.57-1.11); EST GLOMERULAR FILTRATION RATE > 60 ML/MIN (60-); GLUCOSE 117 mg/dL (74-118); POTASSIUM 3.2 mmol/L (3.5-5.1); SODIUM 138 mmol/L (136-145)
[2019-07-29 22:46] LABS: BILIRUBIN,URINE NEGATIVE (NEGATIVE); CLARITY,URINE SL CLOUDY (CLEAR); COLOR,URINE YELLOW (YELLOW); KETONES,URINE NEGATIVE (NEGATIVE); LEUKOCYTE ESTERASE ,URINE TRACE (NEGATIVE); NITRITE,URINE NEGATIVE (NEGATIVE); PROTEIN,URINE DIPSTICK NEGATIVE (NEGATIVE); URINE UROBILINOGEN 0.2 mg/dL (0.2 - 1)
[2019-07-29 22:49] LABS: AMYLASE 27 U/L (25-125); LIPASE 16 U/L (8-78)
[2019-07-29] MEDS ORDERED: IOPAMIDOL 370 MG/ML 200 ML INFUS..BTL INJ ONE (22:55)
[2019-07-29] MEDS ORDERED: SODIUM CHLORIDE 0.9% 50ML 50 ML ONE (22:55)
[2019-07-29 23:09] LABS: BACTERIA,URINE FEW /HPF; EPITHELIAL CELLS,URINE FEW /LPF; MUCUS,URINE MANY (RARE)
--- NOTE | 2019-07-30 00:25 | Diagnostic Imaging Report ---
EXAM: CT Abdomen and Pelvis WITH contrast INDICATION: ^ABD PAIN, FEVER, N/V/D ^Y COMPARISON: None. TECHNIQUE: Abdomen and pelvis were scanned utilizing a multidetector helical scanner from the lung base to the pubic symphysis after administration of IV contrast. Coronal and sagittal reformations were obtained. Dose modulation, iterative reconstruction, and/or weight based adjustment of the mA/kV was utilized to reduce the radiation dose to as low as reasonably achievable. Routine protocol was performed. Scan was performed when during portal venous phase. IV CONTRAST: 100 mL of Isovue-370 ORAL CONTRAST: None COMPLICATIONS: None RADIATION DOSE: Total DLP: 270.28 mGy*cm Estimated effective dose: (DLP x 0.015 x size factor) mSv CTDIvol has been reviewed. It is below the limits set by the Radiation Protocol Committee (RPC). FINDINGS: LINES and TUBES: None. LOWER THORAX: Unremarkable HEPATOBILIARY: No focal hepatic lesions. No biliary ductal dilation. GALLBLADDER: Surgically absent. SPLEEN: Borderline splenomegaly. PANCREAS: No focal masses or ductal dilatation. ADRENALS: No adrenal nodules KIDNEYS/URETERS: Kidneys enhance symmetrically. No hydronephrosis. No cystic or solid mass lesions. No stones. GI TRACT: No abnormal distention, wall thickening, or evidence of bowel obstruction. Medially displaced ascending colon. Small bowel loops in the right abdomen. Duodenum does not cross the midline. Appendix is not visualized. PELVIC ORGANS/BLADDER: Bladder is unremarkable. Hysterectomy. LYMPH NODES: No lymphadenopathy. VESSELS: There is moderate atherosclerotic disease in the aorta and major arterial branches. Reversed relationship between the SMA and SMV. PERITONEUM / RETROPERITONEUM: No free air or fluid. BONES: Unremarkable. SOFT TISSUES: Unremarkable. IMPRESSION: Midgut malrotation. No evidence of bowel obstruction or swirling of the mesentery on current exam. However, this abnormality does predispose to midgut volvulus and internal hernias. Signed by: Dr. Chris Martinez MD on 07/30/2019 12:21 AM
[2019-07-30] MEDS ORDERED: POTASSIUM CHLORIDE 20 MEQ TAB CR PO STA (00:37)
[2019-07-30 00:57] VITALS: BP 121/45
== END 2019-07-30 01:08 | disposition home or self-care (01) ==
LOC: ER 20:49
DX: R11.2 Nausea with vomiting, unspecified (principal); R19.7 Diarrhea, unspecified; A08.4 Viral intestinal infection, unspecified; I10 Essential (primary) hypertension; F41.9 Anxiety disorder, unspecified; F32.9 Major depressive disorder, single episode, unspecified; E87.6 Hypokalemia
CPT/HCPCS: 36415; 74177; 80053; 81001; 82150; 83605; 83690; 85025; 87040; 87400; 99284; J2405; J7030; Q9967

== ENCOUNTER → 2020-05-27 | Outpatient (CLI) | payer MEDICARE ==
[~2020-05-27] MED LIST changes: +IOPAMIDOL 370 MG/ML 200 ML INFUS..BTL INJ ONE; +SODIUM CHLORIDE 0.9% 50ML 50 ML ONE
[2020-05-27 17:02] LABS: BLOOD UREA NITROGEN 18 mg/dL (7-26); BUN/CREATININE RATIO 23 (6-25); CREATININE, SERUM 0.77 mg/dL (0.57-1.11); EST GLOMERULAR FILTRATION RATE > 60 ML/MIN (60-)
== END ==
LOC: CT 15:37
PROVIDERS: ATTEND Internal Medicine
DX: R10.11 Right upper quadrant pain (principal)
CPT/HCPCS: 36415; 74160; 82565; 84520; Q9967

== ENCOUNTER → 2020-06-21 | Outpatient (CLI) | payer MEDICARE ==
[~2020-06-21] MED LIST changes: -IOPAMIDOL 370 MG/ML 200 ML INFUS..BTL INJ ONE; -SODIUM CHLORIDE 0.9% 50ML 50 ML ONE
== END ==
LOC: DX 07:28
PROVIDERS: ATTEND Surgery
DX: R10.9 Unspecified abdominal pain (principal); Z11.59 Encounter for screening for other viral diseases
CPT/HCPCS: 74246; 74250; U0002